=== PATIENT | male | born 1995 | race Native Hawaiian/Other Pacific Islander ===

== ENCOUNTER 2021-08-10 02:47 | Emergency (ER) | payer SELFPAY ==
[~2021-08-10] VITALS: Ht 167.7 cm; Wt 81.6 kg
--- NOTE | 2021-08-10 03:14 | ED Respiratory ---
General Chief Complaint: Respiratory Problems Stated Complaint: SOB Nursing Triage Note: c/o intermittant non productive cough, soa x30 min. Source: patient (SOME[employer] VAG[employer] HISTORIAN) History of Present Illness Date Seen by Provider: August 10, 2021 Time Seen by Provider: 03:00 Initial Comments PT ARRIVES VIA POV FROM HOME C/O SHORTNESS OF BREATH STATES IT BEGAN " A COUPLE OF MINUTES AGO" WHILE WATCHING MOVIES HAD MILD NON-PRODUCTIVE COUGH NO FEVER NO CHEST PAIN NO SORE THROAT OR NASAL CONGESTION/DRAINAGE STATES HE WAS FINE ALL DAY, AND WAS INDOORS ALL DAY STATES HE HAS HAD THE SAME PROBLEM BEFORE--STATES HE HAS ASTHMA --"BUT ONLY IN THE SPRING" PT DOES NOT HAVE AN INHALER--STATES THE LAST TIME HE USED AN INHALER WAS "SOMETIME LAST YEAR" PT DOES NOT HAVE A DR. --STATES HE JUST MOVED HERE FROM [place] " SOMETIME LAST YEAR--summer" NO PRIOR VISITS HERE PT HAS HAD COVID VACCINE X 2--LAST ONE WAS "SOMETIME LAST SUMMER--MAYBE SEPTEMBER" DENIES ANY KNOWN SICK CONTACTS. STATES HE WORKS AT [employer], AND NO MASK REQUIREMENTS THERE. PT DENIES SMOKING, ALCOHOL OR DRUG USE. PCP: NONE Allergies and Home Medications Allergies Coded Allergies: No Known Drug Allergies (Unverified , 08/10/21) Patient Home Medication List Home Medication List Reviewed: Yes Prednisone (Prednisone) 20 Mg Tab, 40 MG PO DAILY Prescribed by: NAIDA BETTENCOURT on 08/10/21 0338 Review of Systems Review of Systems Constitutional: no symptoms reported EENTM: no symptoms reported Respiratory: see HPI, cough, short of breath Cardiovascular: no symptoms reported Gastrointestinal: no symptoms reported Genitourinary: no symptoms reported Musculoskeletal: no symptoms reported Skin: no symptoms reported Psychiatric/Neurological: No Symptoms Reported Hematologic/Lymphatic: No Symptoms Reported Immunological/Allergic: no symptoms reported Past Vnyhetq-Erpbpi-Hiegnh Hx Patient Social History Tobacco Use?: No Smoking Status: Never a Smoker Substance use?: No Alcohol Use?: No Pt feels they are or have been: No Past Medical History Surgery/Hospitalization HX: denies Surgeries: No Respiratory: Yes Asthma Cardiac: No Neurological: No Genitourinary: No Gastrointestinal: No Musculoskeletal: No Endocrine: No HEENT: No Cancer: No Psychosocial: No Integumentary: No Blood Disorders: No Physical Exam Vital Signs - First Documented 08/10/21 02:54 Temp 36.6 Pulse 86 Resp 16 B/P (MAP) 107/72 (84) Pulse Ox 94 O2 Delivery Room Air Capillary Refill : Less Than 3 Seconds Height: '" Weight: lbs. oz. kg; 29.00 BMI Method: General Appearance: WD/WN, no apparent distress, other (TEXTING THROUGHOUT EXAM AND ER VISIT. FLAT AFFECT. DOES NOT APPEAR TO BE IN ANY DISCOMFORT OR DISTRESS. ) HEENT: PERRL/EOMI, normal ENT inspection, TMs normal, pharynx normal Neck: normal inspection Respiratory: no respiratory distress, no accessory muscle use, other (MILD END EXPIRATORY WHEEZING ) Cardiovascular: regular rate, rhythm, no murmur Gastrointestinal: soft Extremities: normal inspection Neurologic/Psychiatric: no motor/sensory deficits, alert, oriented x 3 Skin: normal color (DARK SKINNED), warm/dry Progress/Results/Core Measures Suspected Sepsis SIRS Temperature: Pulse: 86 Respiratory Rate: 16 Blood Pressure 107 /72 Mean: 84 Results/Orders Lab Results Laboratory Tests Test 08/10/21 03:11 Range/Units Influenza Type A (RT-PCR) Not Detected Not Detecte Influenza Type B (RT-PCR) Not Detected Not Detecte SARS-CoV-2 RNA (RT-PCR) Not Detected Not Detecte My Orders Orders - NAIDA BETTENCOURT DO Chest 1 View, Ap/Pa Only (08/10/21 03:02) Covid 19 Inhouse Test (08/10/21 03:02) Influenza A And B By Pcr (08/10/21 03:02) Isolation Central Supply Req (08/10/21 03:02) Rx-Albuterol Inhaler (Rx-Ventolin Hfa In (08/10/21 03:57) Vital Signs/I&O 08/10/21 02:54 Temp 36.6 Pulse 86 Resp 16 B/P (MAP) 107/72 (84) Pulse Ox 94 O2 Delivery Room Air Capillary Refill : Less Than 3 Seconds Blood Pressure Mean: 84 Progress Note : Progress Note PPE WORN COVID AND FLU TESTING DONE O2 SATS 94-98% ON ROOM AIR. NO COUGH NO DYSPNEA NO FEVER NO HYPOXIA AT ANY TIME DURING ER STAY Diagnostic Imaging Comments CXR-- Reviewed: Reviewed by Me Departure Impression Primary Impression: Asthma exacerbation Disposition: 01 HOME, SELF-CARE Condition: Stable Departure-Patient Inst. Decision time for Depature: 03:57 Patient Instructions: Asthma, Adult (DC), How to Use a Spacer, How to Use a Metered Dose Inhaler ED Add. Discharge Instructions: USE INHALER EVERY 4 HOURS NEEDED FOR SHORTNESS OF BREATH OR WHEEZING--USE INHALER WITH A SPACER AT ALL TIMES ESTABLISH WITH LOCAL DRKaron OF CHOICE THIS WEEK FOR FURTHER CARE RETURN TO ER IF SYMPTOMS WORSEN. All discharge instructions reviewed with patient and/or family. Voiced understanding. Scripts Prednisone (Prednisone) 20 Mg Tab 40 MG PO DAILY, #6 TAB 0 Refills Prov: NAIDA BETTENCOURT DO 08/10/21 Work/School Note: Local [employer] Listing NAIDA BETTENCOURT DO August 10, 2021 03:14
[2021-08-10] MEDS ORDERED: PRD20T PO (03:38)
[2021-08-10] MEDS ORDERED: RX-ALBUTEROL INHALER 8.5 GM HFA (PROAIR) IH STA (03:57)
[2021-08-10 04:02] VITALS: BP 106/87
--- NOTE | 2021-08-10 06:07 | Diagnostic Imaging Report ---
EXAMINATION: Chest 1 view HISTORY: COUGH, SHORTNESS OF BREATH COMPARISON: None available. FINDINGS: Heart size and pulmonary vasculature are normal. The lungs are clear without consolidation, pleural effusion, or pneumothorax. The osseous structures are intact. IMPRESSION: 1. No acute radiographic abnormality in the chest. Dictated by: Dictated on workstation # [id number]
== END 2021-08-10 04:01 | disposition home or self-care (01) ==
LOC: ER 02:50
DX: J45.901 Unspecified asthma with (acute) exacerbation (principal); Z20.822 Contact with and (suspected) exposure to COVID-19
CPT/HCPCS: 71045; 87636